=== PATIENT | female | born 1970 | race American Indian/Alaskan Native ===

== ENCOUNTER 2017-04-17 09:14 | Outpatient (CLI) | payer BC ==
--- NOTE | 2017-04-17 15:42 | Mammography Report ---
BILATERAL DIGITAL SCREENING MAMMOGRAM with CAD : 04/17/17 09:14:00 CLINICAL: Routine screening.Right breast cysts confirmed 04/05/16. COMPARISON:04/05/16 and 03/07/16 FINDINGS: The breasts are heterogeneously dense, which may obscure small masses.Right inferior circumscribed densities are unchanged compared to the prior mammogram and are consistent with cysts. No mass, architectural distortion or suspicious calcifications. IMPRESSION: No mammographic evidence of malignancy. BI-RADS CATEGORY: 2 -- Benign RECOMMENDATION: Routine mammographic screening in one year. COMMENT: Patient follow-up letters are generated by our [facility] application.
== END 2017-04-17 09:15 | disposition home or self-care (01) ==
LOC: SPVWC 09:14
PROVIDERS: ATTEND Obstetrics & Gynecology Gynecology
DX: Z12.31 Encounter for screening mammogram for malignant neoplasm of breast (principal)
CPT/HCPCS: 77067; G0202

== ENCOUNTER 2017-10-17 15:18 | Outpatient (CLI) | payer BC ==
--- NOTE | 2017-10-17 16:34 | XRay Report ---
XRAY LEFT HAND THREE VIEWS: 10/17/17 15:18:00 CLINICAL: Trauma. She slammed her hand in a door. FINDINGS: Normal bones and joints. No fracture or dislocation. Soft tissue swelling of the dorsum of the hand and a 3 x 2 mm rectangular shaped radiopaque foreign body between the first and second metatarsals on 2 views. IMPRESSION: No fracture or dislocation. Foreign body in the soft tissues.
== END 2017-10-17 15:19 | disposition home or self-care (01) ==
LOC: SPVIMAG 15:18
PROVIDERS: ATTEND Internal Medicine
DX: M25.542 Pain in joints of left hand (principal); M25.442 Effusion, left hand; M79.5 Residual foreign body in soft tissue

== ENCOUNTER 2019-05-24 14:20 | Outpatient (CLI) | payer BC ==
--- NOTE | 2019-05-24 16:04 | Mammography Report ---
DIGITAL SCREENING MAMMOGRAM WITH CAD, 05/24/2019 INDICATION: Routine screening mammography. Previous exam confirm the right lower cysts. TECHNIQUE: Digital bilateral 2D mammography was obtained in the craniocaudal and mediolateral obliq ue projections. This examination was interpreted with the benefit of Computer-Aided Detection analysi s. COMPARISON: 05/23/2018 and 04/17/2017 FINDINGS: Breast Density: The breasts are heterogeneously dense, which may obscure small masses. There is no evidence of dominant mass, suspicious calcifications or architectural distortion in eithe r breast. IMPRESSION: No mammographic evidence of malignancy. Follow up recommendation: Routine yearly BI-RADS Category 2: Benign. A "normal" or negative report should not discourage follow up or biopsy of a clinically significant f inding. A written summary of these findings will be mailed to the patient. The patient will be entered into a mammography reporting system which will generate a reminder letter for the patient's next appointmen t at the appropriate interval. The [employer] recommends yearly mammograms starting at age 40 and continuing as l mahendra as a woman is in good health. Breast MRI is recommended for women with an approximate 20-25% or greater lifetime risk of breast cancer, including women with a strong family history of breast or ova humaira cancer or who have been treated for Hodgkin's disease. Signer Name: Ozzie Culver MD Signed: 05/24/2019 4:00 PM Workstation Name: [id number]
== END 2019-05-24 14:21 | disposition home or self-care (01) ==
LOC: SPVWC 14:20
PROVIDERS: ATTEND Internal Medicine
DX: Z12.31 Encounter for screening mammogram for malignant neoplasm of breast (principal)
CPT/HCPCS: 77067

== ENCOUNTER 2020-05-25 13:47 | Outpatient (CLI) | payer BC ==
--- NOTE | 2020-05-25 16:02 | Mammography Report ---
DIGITAL DIAGNOSTIC MAMMOGRAM WITH CAD , 05/25/2020 CLINICAL INFORMATION / INDICATION: Right yellow nipple discharge. TECHNIQUE: Digital bilateral mammographic imaging was performed. Spot compression views were obtaine d. This examination was interpreted with the benefit of Computer-aided Detection analysis. COMPARISON: 05/23/2018 FINDINGS: Breast Density: There are scattered areas of fibroglandular density. No dominant mass, suspicious calcifications or architectural distortion in the left breast. Stable small oval well-circumscribed nodules have developed in the deep retroareolar and 6:00 positio n of the right breast. This will need to be further evaluated with right breast ultrasound. IMPRESSION: New right breast nodularity in the deep retroareolar and 6:00 position. Recommend right b reast ultrasound for further evaluation. Follow up recommendation: Ultrasound BI-RADS Category 0: Incomplete. Needs additional imaging evaluation and/or prior mammograms for sergei alfredo. A "normal" or negative report should not discourage follow up or biopsy of a clinically significant f inding. A written summary of these findings will be mailed to the patient. The patient will be entered into a mammography reporting system which will generate a reminder letter for the patient's next appointmen t at the appropriate interval. According to the [employer], yearly mammograms are recommended starting at age 40 and continuing as long as a woman is in good health. Breast MRI is recommended for women with an tami roximately 20-25% or greater lifetime risk of breast cancer, including women with a strong family his tory of breast or ovarian cancer and women who have been treated for Hodgkin's disease. Signer Name: Leni Butler MD Signed: 05/25/2020 3:57 PM Workstation Name: [id number]
== END 2020-05-25 13:48 | disposition home or self-care (01) ==
LOC: SPVWC 13:47
PROVIDERS: ATTEND Obstetrics & Gynecology
DX: N63.15 Unspecified lump in the right breast, overlapping quadrants (principal); R89.9 Unspecified abnormal finding in specimens from other organs, systems and tissues
CPT/HCPCS: 77066

== ENCOUNTER 2020-06-09 09:44 | Outpatient (CLI) | payer BC ==
--- NOTE | 2020-06-09 11:00 | Ultrasound Report ---
ULTRASOUND BREAST RIGHT LIMITED, 06/09/2020 CLINICAL INFORMATION / INDICATION: Follow-up of abnormal screening mammogram. TECHNIQUE: Targeted ultrasound evaluation was performed of the area of interest. COMPARISON: 05/25/2020, 05/24/2019 FINDINGS: A simple cyst is seen immediately deep to the right nipple in the 6:00 position measuring 6 x 6 x 4 m m. Another simple cyst is seen in the 8:00 position 4 cm from the nipple measuring 9 x 5 x 8 mm. No o ther significant abnormality. IMPRESSION: No sonographic evidence of malignancy. Follow up recommendation: Routine yearly BI-RADS Category 2: Benign. A normal or "negative" report should not preclude biopsy or follow-up of a clinically suspicious find ing. Signer Name: Tye Byrne MD Signed: 06/09/2020 10:55 AM Workstation Name: [id number]
== END 2020-06-09 09:45 | disposition home or self-care (01) ==
LOC: US 09:44
PROVIDERS: ATTEND Obstetrics & Gynecology
DX: N60.01 Solitary cyst of right breast (principal)

== ENCOUNTER 2020-12-08 09:37 | Outpatient (CLI) | payer BC ==
--- NOTE | 2020-12-08 16:15 | Ultrasound Report ---
RIGHT DIGITAL DIAGNOSTIC MAMMOGRAM WITH CAD , 12/08/2020 RIGHT LIMITED BREAST ULTRASOUND CLINICAL INFORMATION / INDICATION: This is a short-term follow-up for abnormal findings in the right breast. Patient states she no longer experiences nipple discharge following administration of antibio tics. The technologist did state that a yellow nipple discharge did occur during compression. R92.2 TECHNIQUE: Digital right mammographic imaging was performed. Limited ultrasound was performed. This e xamination was interpreted with the benefit of Computer-Aided Detection (CAD) analysis. COMPARISON: Prior mammogram 05/24/2019 and 05/25/2020 FINDINGS: Breast Density: There are scattered areas of fibroglandular density. MAMMOGRAPHIC FINDINGS: Nodularity noted in the deep retroareolar and inferior right breast persists n ot appreciably changed from 05/24/2019 mammogram.. Overall, no interval change. ULTRASOUND FINDINGS: Targeted ultrasound evaluation was performed of the area of interest. Sonograp hic evaluation of the right breast shows a dilated duct containing debris in the subareolar breast. T here is a simple cyst in the 8:00 position, 4 cm from nipple measuring 6 mm, as noted on prior study. Additionally, there are multiple small benign-appearing solid nodules throughout the 7-8:00 position of the right breast, 4 cm from nipple. These solid small nodules are seen to correlate with mammogra phic nodularity in the inferior right breast as noted on multiple prior mammograms. Due to the stabi lity mammographically, no further follow up or imaging is suggested. IMPRESSION: No mammographic or sonographic evidence of malignancy in the right breast. Stable right b reast nodularity and fibrocystic change. Follow up recommendation: Routine yearly BI-RADS Category 2: Benign. A "normal" or negative report should not discourage follow up or biopsy of a clinically significant f inding. A written summary of these findings will be mailed to the patient. The patient will be entered into a mammography reporting system which will generate a reminder letter for the patient's next appointmen t at the appropriate interval. According to the [employer], yearly mammograms are recommended starting at age 40 and continuing as long as a woman is in good health. Breast MRI is recommended for women with an tami roximately 20-25% or greater lifetime risk of breast cancer, including women with a strong family his tory of breast or ovarian cancer and women who have been treated for Hodgkin's disease. Signer Name: Leni Butler MD Signed: 12/08/2020 4:11 PM Workstation Name: [id number]
== END 2020-12-08 09:38 | disposition home or self-care (01) ==
LOC: MAMMO 09:37
PROVIDERS: ATTEND Surgery
DX: N60.01 Solitary cyst of right breast (principal)

== ENCOUNTER 2021-12-09 14:26 | Outpatient (CLI) | payer BC ==
--- NOTE | 2021-12-13 09:31 | Mammography Report ---
DIGITAL SCREENING MAMMOGRAM WITH CAD, 12/09/2021 CLINICAL INFORMATION / INDICATION: Routine screening mammography. TECHNIQUE: Digital bilateral 2D mammography was obtained in the craniocaudal and mediolateral oblique projections. This examination was interpreted with the benefit of Computer-Aided Detection analysis. COMPARISON: 05/25/2020 and 12/08/2020. FINDINGS: Breast Density: There are scattered areas of fibroglandular density. No dominant mass, suspicious calcifications, or architectural distortion in either breast. Benign-appearing nodularity inferiorly on the right is again identified. No new abnormality is seen. IMPRESSION: No mammographic evidence of malignancy. Follow up recommendation: Routine yearly screening mammogram. BI-RADS Category 2: BENIGN. A "normal" or negative report should not discourage follow up or biopsy of a clinically significant f inding. A written summary of these findings will be mailed to the patient. The patient will be entered into a mammography reporting system which will generate a reminder letter for the patient's next appointmen t at the appropriate interval. The [employer] recommends yearly mammograms starting at age 40 and continuing as l mahendra as a woman is in good health. Breast MRI is recommended for women with an approximate 20-25% or greater lifetime risk of breast cancer, including women with a strong family history of breast or ova humaira cancer or who have been treated for Hodgkin's disease. Signer Name: Jorge Nunes MD Signed: 12/13/2021 9:27 AM Workstation Name: [id number]
== END 2021-12-09 14:27 | disposition home or self-care (01) ==
LOC: MAMMO 14:26
PROVIDERS: ATTEND Obstetrics & Gynecology
DX: Z12.31 Encounter for screening mammogram for malignant neoplasm of breast (principal)
CPT/HCPCS: 77067